=== PATIENT | male | born 1980 | race Caucasian/White ===

== ENCOUNTER 2021-09-22 19:41 | Emergency (ER) | payer OTHER ==
[2021-09-23] MEDS ORDERED: BUTALB-ACETAMI1 EAC1 PO (00:07)
== END 2021-09-23 00:32 | disposition home or self-care (01) ==
LOC: ER1 19:41
DX: R51.9 Headache, unspecified (principal); F17.210 Nicotine dependence, cigarettes, uncomplicated; E11.9 Type 2 diabetes mellitus without complications
CPT/HCPCS: 96361; 96374; 96375; 99283; J1200; J1885; J2405

== ENCOUNTER 2021-10-27 22:22 | Emergency (ER) | payer OTHER ==
[~2021-10-27 22:22] MED LIST: BUTALB-ACETAMI1 EAC1 PO
== END 2021-10-28 01:45 | disposition home or self-care (01) ==
LOC: ER1 22:22
DX: U07.1 COVID-19 (principal); F17.210 Nicotine dependence, cigarettes, uncomplicated
CPT/HCPCS: 0240U; 96374; 96375; 99284; J1885; J2270; J2765